=== PATIENT | female | born 1970 | race Caucasian/White ===

== ENCOUNTER 2019-11-27 09:32 | Outpatient (CLI) | payer BC ==
--- NOTE | 2019-11-27 13:37 | ULT ---
BILATERAL RENAL ULTRASOUND: Date: 11/27/2019 HISTORY: Hematuria and multiple UTIs. FINDINGS: Real-time imaging of the right and left kidneys performed. This shows normal sized kidneys. Right kid corin measures 9.1 cm and left kidney measures 10.6 cm in size. No signs of cyst, mass, or obstruction. The bladder region is unremarkable. Pre-void volume is 512 mL. Post-void volume is 35 mL. IMPRESSION: Essentially unremarkable renal ultrasound. POS: [facility]
== END 2019-11-27 09:33 | disposition home or self-care (01) ==
LOC: BICULT 09:32
PROVIDERS: ATTEND Nurse Practitioner Family
DX: N39.0 Urinary tract infection, site not specified (principal); R31.29 Other microscopic hematuria
CPT/HCPCS: 76770

== ENCOUNTER 2021-01-11 07:56 | Outpatient (CLI) | payer BC | END 2021-01-11 07:57 | disposition home or self-care (01) | LOC: BICULT 07:56 → CT 07:57 | PROVIDERS: ATTEND Nurse Practitioner Family | DX: R10.9 Unspecified abdominal pain (principal); M79.671 Pain in right foot; M79.642 Pain in left hand; M19.071 Primary osteoarthritis, right ankle and foot; M19.042 Primary osteoarthritis, left hand; D25.9 Leiomyoma of uterus, unspecified; R22.0 Localized swelling, mass and lump, head; Z90.49 Acquired absence of other specified parts of digestive tract; Z86.018 Personal history of other benign neoplasm | CPT/HCPCS: 70450; 70553; 76856; 93975 ==

== ENCOUNTER 2023-08-12 09:16 | Outpatient (CLI) | payer BC, OTHER | END 2023-08-12 09:17 | disposition home or self-care (01) | LOC: BICMAMMO 09:16 | PROVIDERS: ATTEND Nurse Practitioner Family | DX: Z12.31 Encounter for screening mammogram for malignant neoplasm of breast (principal); N63.25 Unspecified lump in the left breast, overlapping quadrants; Z80.3 Family history of malignant neoplasm of breast | CPT/HCPCS: 77063; 77067 ==

== ENCOUNTER 2023-08-23 13:37 | Outpatient (CLI) | payer OTHER | END 2023-08-23 13:38 | disposition home or self-care (01) | LOC: BICULT 13:37 | PROVIDERS: ATTEND Nurse Practitioner Family | DX: N63.25 Unspecified lump in the left breast, overlapping quadrants (principal) ==